=== PATIENT | female | born 1930 | race Caucasian/White ===

== ENCOUNTER 2017-06-11 19:18 | Inpatient (IN) | payer OTHER, MEDICARE ==
[~2017-06-11] VITALS: Ht 167.6 cm; Wt 68.0 kg
[~2017-06-11 19:18] MED LIST: ACIDOPHILUS1 CAP PO; ACIDOPHILUS1 EACH PO; COLACE100 MG PO; COUGH100 MG/5 M; COUMADIN 3 MG TA3 MG PO; DIGOX0.25 MG PO; DIGOXIN250 MCG PO; EMLA TOP; GABAPENTIN100 M2 PO; GABAPENTIN300 M2 PO; LOPRESSOR 12.12.5 MG PO; LOPRESSOR 25MG25 MG PO; METOPROLOL TART25 M1 PO; NEPHRO-VITE TA0.8 MG PO; NEPHROCAPS1 TAB PO; NEURONTIN100 MG PO; NEURONTIN300 MG PO; NORVASC 2.5 MG2.5 MG PO; PROBIOTIC FORMU1 CA1 PO; PROBIOTIC1 EACH PO; RENVELA800 M1 PO; SIMVASTATIN10 M1 PO; SIMVASTATIN20 MG PO; SYMBICORT 80-10.2 GM INH; TYLENOL WITH C1 EACH PO; VOLTAREN100 GM TOP; WARFARIN SODIUM2 M1 PO
--- NOTE | 2017-06-11 19:22 | ED GENERAL ADULT ---
History of Present Illness General Chief Complaint: Altered Mental Status Stated Complaint: BIBA FOR ALTERED MENTAL STATUS Source: patient Exam Limitations: poor historian Vital Signs & Intake/Output Vital Signs & Intake/Output Vital Signs Date Time Temp Pulse Resp B/P B/P Pulse O2 O2 Flow FiO2 Mean Ox Delivery Rate 06/12 2023 95 Nasal 2.0L Cannula 06/11 2006 96 Nasal 2.0L Cannula 06/11 1921 97.5 78 20 148/64 93 Room Air Allergies Coded Allergies: losartan (From COZAAR) (Severe, HYPOTENSION 11/17/16) celecoxib (From CELEBREX) (Mild, RASH 11/17/16) Sulfa (Sulfonamide Antibiotics) (Intermediate, GI, DIARRHEA 11/17/16) doxycycline (Intermediate, GI, DIARRHEA 11/17/16) Reconcile Medications Digoxin 250 MCG TABLET 1 TAB PO SAT HEART HEALTH (Reported) Gabapentin 100 MG CAPSULE 1 CAP PO BID Pain (Reported) Give on: Saturday, Saturday, Saturday and Saturday Gabapentin 300 MG CAPSULE 1 CAP PO SAT PAIN (Reported) Lactobacillus Acidophilus (Acidophilus) 1 EACH CAPSULE 1 CAP PO DAILY VITAMIN SUPPORT (Reported) Lactobacillus Acidophilus (Probiotic) 10 BILLION CELL CAPSULE 1 CAP PO TID VITAMIN SUPPORT (Reported) Metoprolol Tartrate 25 MG TABLET 12.5 MG PO BID HIGH BLOOD PRESSURE (Reported ) Give on non dialysis days: Saturday, Saturday, Saturday and Saturday Nephro-Vitamins (Nephro-Singh Tablet) 0.8 MG TABLET 1 TAB PO DAILY VITAMIN SUPPORT (Reported) Sevelamer Carbonate (Renvela) 800 MG TABLET 2 TAB PO TID ELECTROLYTES ( Reported) Simvastatin (Simvastatin*) 10 MG TABLET 1 TAB PO QPM HIGH CHOLESTROL ( Reported) Warfarin Sodium 2 MG TABLET 1 TAB PO DAILY BLOOD THINNER (Reported) Triage Nurses Notes Reviewed? yes Onset: Abrupt Duration: hour(s): Timing: recent history HPI: 06/11/17 8:40 PM 87-year-old female is brought into the emergency department by her family for altered mental status and leg swelling. According to the patient's daughter she has been more confused today and also has significant bilateral lower extremity leg swelling with redness and pain to the left anterior lower extremity. She denies chest pain, shortness of breath, fever or other complaints. She declined going to dialysis today. She was last dialyzed on Saturday. She did not have a full dialysis on Saturday requiring IV fluids for hypotension. She does not make urine. Past History Travel History Traveled to [place] past 21 day No Medical History Any Pertinent Medical History? see below for history Neurological: CVA, peripheral neuropathy, syncope EENT: NONE Cardiovascular: AFIB, hypertension Respiratory: pulmonary hypertension, PLEURAL EFFUSION RT Gastrointestinal: NONE Hepatic: NONE Renal: chronic kidney disease Musculoskeletal: osteoarthritis, osteoporosis, RA Psychiatric: NONE Endocrine: NONE Blood Disorders: NONE Cancer(s): NONE MILL OPERATOR HEAD/Reproductive: NONE History of MRSA: No History of VRE: No History of CDIFF: No Surgical History Surgical History: cataract removal (B/L), hysterectomy, AV FISTULA 2006 GRAFT AT AV FISTULA 2013 Psychosocial History Who do you live with Daughter Services at Home None What is your primary language Com[place]an Family History Family History, If Any: MOTHER (HTN). FH: breast cancer FH: CAD (coronary artery disease) FH: colon cancer BROTHER FH: Alzheimers disease FH: CAD (coronary artery disease) FATHER, ; Cause: Myocardial infarct. FH: HTN (hypertension) Relation not specified for: FH: myocardial infarction Hx Contributory? No Review of Systems Review of Systems Constitutional: Denies: fever. EENTM: Denies: visual changes. Respiratory: Denies: short of breath. Cardiovascular: Denies: chest pain. GI: Denies: abdominal pain. Genitourinary: Reports: no symptoms. Musculoskeletal: Reports: see HPI. Skin: Reports: see HPI. Neurological/Psychological: Reports: confusion. Hematologic/Endocrine: Reports: no symptoms. Immunologic/Allergic: Reports: no symptoms. Physical Exam Physical Exam General Appearance: alert, awake, anxious, mild distress Head: atraumatic, normal appearance Eyes: Bilateral: normal appearance, PERRL, EOMI. Ears, Nose, Throat: normal ENT inspection Neck: normal inspection Respiratory: no respiratory distress Cardiovascular: regular rate/rhythm Gastrointestinal: soft, non-tender Back: decreased range of motion Extremities: pedal edema Neurologic/Psych: awake, alert (ox 2 with help) Skin: rash Core Measures ACS in differential dx? No CVA/TIA Diagnosis: Yes Sepsis Present: No Sepsis Focused Exam Completed? No Progress Differential Diagnoses I considered the following diagnoses in my evaluation of the patient: [CVA, TIA, sepsis, cellulitis, electrolyte derangement, pneumonia] Plan of Care: Orders Procedure Date/time Status Renal Dialysis Diet 06/12 B Active LACTIC ACID 06/12 2243 Complete ED Holding Orders 06/12 2155 Active Admit to inpatient 06/12 2155 Active Vital Signs 06/12 2155 Active Code Status 06/12 2155 Active Add-on Test (ER Only) 06/11 2134 Active DIGOXIN 06/11 2032 Active BLOOD CULTURE 06/12 1943 Active TROPONIN LEVEL 06/12 1943 Active PROTHROMBIN TIME 06/12 1943 Complete D-DIMER 06/12 1943 Complete COMPREHENSIVE METABOLIC PANEL 06/12 1943 Active CBC WITHOUT DIFFERENTIAL 06/12 1943 Complete EKG 06/11 1921 Active Current Medications Sig/Luis Start time Last Medication Dose Stop Time Status Admin Cefazolin Sodium 1,000 MG ONCE ONE 06/11 2199 UNVr (Kefzol-Ancef Inj) 06/11 2200 Laboratory Tests 06/11/17 2100: PT 69.2 *H, INR 6.23 *H, D-Dimer High Sensitivty < 200 06/11/172032: Anion Gap 9, Estimated GFR 11 L, BUN/Creatinine Ratio 8.8, Glucose 89, Calcium 9.1, Total Bilirubin 1.1, AST 14, ALT 25, Alkaline Phosphatase 82, Troponin I < 0.01, Total Protein 5.3 L, Albumin 2.6 L, Globulin 2.7, Albumin/Globulin Ratio 1.0 L, Digoxin Pending 06/11/171949: Lactic Acid 0.7, CBC w Diff NO MAN DIFF REQ, RBC 3.62 L, MCV 103.3 H, MCH 31.8 H, MCHC 30.8 L, RDW 19.0 H, MPV 7.5, Gran % 93.8 H, Lymphocytes % 3.8 L, Monocytes % 2.1, Eosinophils % 0.1, Basophils % 0.2, Absolute Granulocytes 19.6 H, Absolute Lymphocytes 0.8 L, Absolute Monocytes 0.4, Absolute Eosinophils 0, Absolute Basophils 0 Microbiology 06/11 1949 BLOOD: Blood Culture - RECD 06/12 1947 BLOOD: Blood Culture - RECD CXR Impression: no acute abnormality Initial ED EKG: NSR, nonspecific ST T wave chg Prior EKG: unchanged Departure Departure Disposition: STILL A PATIENT Condition: Stable Clinical Impression Primary Impression: Altered mental status Secondary Impressions: Cellulitis Referrals: Arevalo Ino ZHAO (PCP/Family) Departure Forms: Customer Survey General Discharge Information Comments PATIENT: VANESSA CHONG PRESENT AGE: 87 PATIENT ACCOUNT NO: [id number] : [birth year] LOCATION: [facility] ORDERING PHYSICIAN: Cristian Canchola DO SERVICE DATE: 06/11/17 EXAM TYPE: CAT - CT HEAD WO IV CONTRAST EXAMINATION: CT HEAD WITHOUT CONTRAST CLINICAL INFORMATION: Altered mental status. On Coumadin. COMPARISON: CT head 08/05/2012 TECHNIQUE: Contiguous axial imaging was performed from the skull base to vertex without intravenous administration of contrast. DLP: 359.06 mGy-cm FINDINGS: There is a geographic area of low attenuation involving the left periventricular white matter in the left parietal lobe extending into the cortex. This is likely from an old infarct but is new since the CAT scan of 08/05/2012. There is no evidence of acute intracranial hemorrhage or acute territorial infarction. No abnormal mass effect or midline shift is seen. Negrete to white matter differentiation is well preserved. No extra-axial fluid collections are identified. There is atrophy with prominence of the ventricles and the sulci and hypodensity of the periventricular white matter due to chronic small vessel ischemic disease. There is vascular calcifications of the internal carotid arteries bilaterally. The osseous structures and soft tissues are normal. The mastoid air cells and visualized portions of the paranasal sinuses are well aerated. IMPRESSION: 1. No intracranial hemorrhage. 2. Geographic area of low attenuation involving the left periventricular white matter in the left parietal lobe likely old infarct but is new since CAT scan of 08/05/2012. DICTATED BY: Art Hodges MD DATE/TIME DICTATED:06/11/172020 BAKER HELPER:CRISTIAN DATE/TIME TRANSCRIBED:06/11/172020 CONFIDENTIAL, DO NOT COPY WITHOUT APPROPRIATE AUTHORIZATION. <Electronically signed in Other Vendor System> SIGNED BY: Art Hodges MD 06/11/172028 Admission Note Spoke With: Sundeep Lowery MD Documentation of Exam: Documentation of any treatments & extenuating circumstances including Concerns Regarding Discharge (functional status, medication knowledge or non-compliance, living conditions, etc.) that warrant an admission rather than observation: [The patient needs admission for IV antibiotics, renal consultation, follow the digoxin level, follow the repeat INR level, consider PT consultation] Critical Care Note Critical Care Note Critical Care Time: non-applicable
--- NOTE | 2017-06-11 20:24 | RADIOLOGY REPORT ---
EXAMINATION: XR PORTABLE CHEST CLINICAL INFORMATION: Altered mental status. COMPARISON: Chest x-ray 05/11/2015 TECHNIQUE: Portable frontal view of the chest was obtained. 7:52 PM FINDINGS: The chin overlies the lower lung apex. There is no acute change. No infiltrate. No pulmonary vascular congestion. Chronic blunting of the right costophrenic angle unchanged since prior chest x-ray 05/11/2015. Vascular stent in the soft tissues of the left upper arm partially imaged. IMPRESSION: No acute abnormality.
--- NOTE | 2017-06-11 20:29 | CT SCAN REPORT ---
EXAMINATION: CT HEAD WITHOUT CONTRAST CLINICAL INFORMATION: Altered mental status. On Coumadin. COMPARISON: CT head 08/05/2012 TECHNIQUE: Contiguous axial imaging was performed from the skull base to vertex without intravenous administration of contrast. DLP: 359.06 mGy-cm FINDINGS: There is a geographic area of low attenuation involving the left periventricular white matter in the left parietal lobe extending into the cortex. This is likely from an old infarct but is new since the CAT scan of 08/05/2012. There is no evidence of acute intracranial hemorrhage or acute territorial infarction. No abnormal mass effect or midline shift is seen. Negrete to white matter differentiation is well preserved. No extra-axial fluid collections are identified. There is atrophy with prominence of the ventricles and the sulci and hypodensity of the periventricular white matter due to chronic small vessel ischemic disease. There is vascular calcifications of the internal carotid arteries bilaterally. The osseous structures and soft tissues are normal. The mastoid air cells and visualized portions of the paranasal sinuses are well aerated. IMPRESSION: 1. No intracranial hemorrhage. 2. Geographic area of low attenuation involving the left periventricular white matter in the left parietal lobe likely old infarct but is new since CAT scan of 08/05/2012.
[2017-06-11 20:44] LABS: ABSOLUTE BASOPHIL COUNT 0 /CUMM (0.0-0.2); ABSOLUTE EOSINOPHIL COUNT 0 /CUMM (0.0-0.7); ABSOLUTE GRANULOCYTE CT 19.6 /CUMM (1.4-6.5); ABSOLUTE LYMPH COUNT 0.8 /CUMM (1.2-3.4); ABSOLUTE MONOCYTE COUNT 0.4 /CUMM (0.10-0.60); BASOPHIL % 0.2 % (0.0-2.0); EOSINOPHIL % 0.1 % (0-5); HEMATOCRIT 37.3 % (37-47); MEAN CORPUSCULAR HGB 31.8 PG (27.0-31.0); MEAN CORPUSCULAR HGB CONC 30.8 G/DL (33.0-37.0); MEAN CORPUSCULAR VOLUME 103.3 FL (81.0-99.0); MEAN PLATELET VOLUME 7.5 FL (7.4-10.4); PLATELET COUNT 226 /CUMM (130-400); RED BLOOD CELL CT 3.62 /CUMM (4.20-5.40); WHITE BLOOD CELL COUNT 20.9 /CUMM (4.8-10.8)
[2017-06-11 21:11] LABS: GRANULOCYTE % 93.8 % (42.2-75.2)
[2017-06-11 21:29] LABS: PT 69.2 SEC (9.4-12.5)
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
[2017-06-11] MEDS ORDERED: METOPROLOL TART25 M1 PO (23:34)
--- NOTE | 2017-06-12 01:42 | Admission Certification ---
Admission Certification Certification Statement - As attending physician, I certify that at the time of - admission, based on clinical presentation, severity of - symptoms, need for further diagnostic testing and - therapeutic interventions, and risk of adverse outcomes - without in-hospital treatment, in my clinical assessment, - this patient requires an acute hospital stay for a minimum - of two nights or longer. I have also considered psychsocial - factors such as support system, advanced age, financial - issues, cognitive issues, and failed out-patient treatments, - past re-admission history, safety of patient, and lack of - compliance as applicable. Specific rationale supporting this admission is: Left lower extremity cellulitis
[2017-06-12 06:02] VITALS: BP 150/67
[2017-06-12 06:26] LABS: ABSOLUTE BASOPHIL COUNT 0.1 /CUMM (0.0-0.2); ABSOLUTE EOSINOPHIL COUNT 0.1 /CUMM (0.0-0.7); ABSOLUTE GRANULOCYTE CT 18.6 /CUMM (1.4-6.5); ABSOLUTE LYMPH COUNT 0.9 /CUMM (1.2-3.4); ABSOLUTE MONOCYTE COUNT 0.5 /CUMM (0.10-0.60); BASOPHIL % 0.3 % (0.0-2.0); EOSINOPHIL % 0.3 % (0-5); GRANULOCYTE % 92.4 % (42.2-75.2); HEMATOCRIT 35.9 % (37-47); MEAN CORPUSCULAR HGB 31.7 PG (27.0-31.0); MEAN CORPUSCULAR HGB CONC 30.7 G/DL (33.0-37.0); MEAN CORPUSCULAR VOLUME 103.1 FL (81.0-99.0); MEAN PLATELET VOLUME 7.1 FL (7.4-10.4); PLATELET COUNT 227 /CUMM (130-400); RED BLOOD CELL CT 3.48 /CUMM (4.20-5.40); WHITE BLOOD CELL COUNT 20.1 /CUMM (4.8-10.8)
--- NOTE | 2017-06-12 07:13 | PN- Housestaff ---
Neal ZHAO,Viviana 06/12/17 0712: Subjective Follow-up For: Left leg cellulitis, end-stage renal disease on dialysis, altered mental status Complaints: no complaints Subjective: Patient seen and examined at bedside. Her daughter was at the bedside. No overnight events. She offers no complaints. She is alert, oriented 3. She denies chest pain, shortness of breath, pain in her legs. She expressed her wish to not to continue dialysis. Review of Systems Constitutional: Reports: no symptoms. Cardiovascular: Reports: no symptoms. Respiratory: Reports: no symptoms. Gastrointestinal: Reports: no symptoms. Genitourinary: Reports: no symptoms. Objective Last 24 Hrs of Vital Signs/I&O Vital Signs Date Time Temp Pulse Resp B/P B/P Pulse O2 O2 Flow FiO2 Mean Ox Delivery Rate 06/12 1026 97.6 81 20 149/62 100 Nasal 2.0L Cannula 06/12 0743 97.5 79 20 166/65 99 Room Air 06/12 0602 95.0 74 20 150/67 100 Nasal 2.0L Cannula 06/12 0555 95.0 74 20 150/67 100 Nasal 2.0L Cannula 06/12 0001 97.4 78 20 144/66 98 Nasal 2.0L Cannula 06/11 2201 97.6 77 20 159/67 99 Nasal 2.0L Cannula 06/12 2023 95 Nasal 2.0L Cannula 06/11 2007 96 Nasal 2.0L Cannula 06/11 1921 97.5 78 20 148/64 93 Room Air Intake & Output 06/12 1600 06/12 0800 06/12 0000 Intake Total 100 0 Output Total Balance 100 0 Intake, Oral 100 0 Patient 150 lb 150 lb Weight Weight Reported by Patient Measurement Method Physical Exam General Appearance: Alert, Oriented X3 Cardiovascular: Regular Rate, Normal S1, Normal S2, No Murmurs Lungs: Clear to Auscultation Abdomen: Normal Bowel Sounds, Soft, No Tenderness Neurological: Normal Speech, Sensation Intact Extremities: bilateral leg swelling. Left leg in wraps. No tenderness/warmth. Current Medications: Current Medications Sig/Luis Start time Last Medication Dose Route Stop Time Status Admin Atorvastatin Calcium 10 MG 1700 06/12 1700 AC PO Cefazolin Sodium 1,000 MG BID 06/12 1000 AC 06/12 IV 0840 Cefazolin Sodium 1,000 MG ONCE ONE 06/110 DC 06/11 IV 06/11 Cefazolin Sodium 0 .STK-MED ONE 06/11 220 DC .ROUTE Cholecalciferol 2,000 IU DAILY 06/12 1000 AC PO Digoxin 0.25 MG TuThSa@1700 06/13 1700 DC PO Digoxin 0.25 MG TuThSa@1700 06/12 0730 AC PO Epoetin Sachin 10,000 UNIT TuThSa PRN 06/12 1045 AC IV Gabapentin 300 MG TU TH SAT 06/13 1000 CAN PO Gabapentin 100 MG BID 06/12 1000 CAN PO Heparin Sodium 5,000 UNIT Q8 06/12 0600 DC 06/12 (Porcine) SC 0600 Heparin Sodium 0 .STK-MED ONE 06/12 0559 DC (Porcine) .ROUTE Lactobacillus 1 CAP DAILY 06/12 1000 AC Acidophilus PO Metoprolol Tartrate 12.5 MG BID 06/12 1000 CAN PO Multivitamins 1 TAB DAILY 06/12 1000 AC PO Paricalcitol 10 MCG TuThSa PRN 06/12 1045 AC IV Sevelamer Carbonate 1,600 MG WM 06/12 0800 AC PO Sodium Polystyrene 0 .STK-MED ONE 06/12 0559 DC Sulfonate .ROUTE Sodium Polystyrene 60 ML ONCE ONE 06/12 0345 DC 06/12 Sulfonate NJ 06/12 0346 0600 Last 24 Hrs of Lab/Pillo Results Last 24 Hrs of Labs/Mics: Laboratory Tests 06/12/17 0607: Anion Gap 8, Estimated GFR 9 L, BUN/Creatinine Ratio 8.1, CBC w Diff MAN DIFF ORDERED, RBC 3.48 L, MCV 103.1 H, MCH 31.7 H, MCHC 30.7 L, RDW 18.0 H, MPV 7.1 L, Gran % 92.4 H, Lymphocytes % 4.6 L, Monocytes % 2.4, Eosinophils % 0.3 , Basophils % 0.3, Absolute Granulocytes 18.6 H, Segmented Neutrophils 90 H, Absolute Lymphocytes 0.9 L, Lymphocytes 5 L, Monocytes 4, Absolute Monocytes 0.5, Absolute Eosinophils 0.1, Basophils 1, Absolute Basophils 0.1, Platelet Estimate ADEQUATE, Polychromasia 1+, Hypochromic-Microcytic 1+, Poikilocytosis 1 +, Anisocytosis 1+, Macrocytic Cells 1+, Ovalocytes 1+, Fld Total RBCs Counted 100 03/13/18 2100: PT 69.2 *H, INR 6.23 *H, D-Dimer High Sensitivty < 200 06/11/172032: Anion Gap 9, Estimated GFR 11 L, BUN/Creatinine Ratio 8.8, Glucose 89, Calcium 9.1, Total Bilirubin 1.1, AST 14, ALT 25, Alkaline Phosphatase 82, Troponin I < 0.01, Total Protein 5.3 L, Albumin 2.6 L, Globulin 2.7, Albumin/Globulin Ratio 1.0 L, Digoxin 1.2 06/11/171949: Lactic Acid 0.7, CBC w Diff NO MAN DIFF REQ, RBC 3.62 L, MCV 103.3 H, MCH 31.8 H, MCHC 30.8 L, RDW 19.0 H, MPV 7.5, Gran % 93.8 H, Lymphocytes % 3.8 L, Monocytes % 2.1, Eosinophils % 0.1, Basophils % 0.2, Absolute Granulocytes 19.6 H, Absolute Lymphocytes 0.8 L, Absolute Monocytes 0.4, Absolute Eosinophils 0, Absolute Basophils 0 Microbiology 06/11 1949 BLOOD: Blood Culture - RECD 06/12 1947 BLOOD: Blood Culture - RECD Assessment/Plan Assessment: 87 YO F with PMH of ESRD on dialysis, A. fib on Coumadin, syncope, HTN, CVA in 2012, pulmonary hypertension on 2 L on oxygen, peripheral neuropathy, osteoporosis, osteoarthritis, RA, hysterectomy, AV fistula in 2005 and graft at AV fistula 2013 and cataract removal bilaterally brought to ED by family for evaluation of altered mental status and progressive worsening bilateral leg swelling with left leg redness for one week. 1. Left leg cellulitis: -Patient has been admitted for left leg cellulitis, patient is on IV cefazolin for the same. Patient WBC count is 20.1 and afebrile since admission. We will continue monitoring her vitals and follow-up with her CBC. -Bilateral leg elevation. Follow up with blood culture. -Ultrasound Doppler ruled out DVT. 2. Supratherapeutic INR: -We will monitor her INR. -Hold her Coumadin. 3. Metabolic encephalopathy: -Patient recent change in mental status can be secondary due to her infection/ medication. -We will continue monitoring her mental status and continue antibiotics to treat the cellulitis. -We'll hold her gabapentin secondary due to confusion. 4. History of ESRD on dialysis: -Patient will follow-up with Sahhzad Aquino MD and discuss about his dialysis. Monitor BP for creatinine BUN and potassium. -Continue nephro vitamins, sevelamer carbonate. -Monitor input and output -Daily weight 5. History of hypertension: -Continue home medication. -Metoprolol is on hold due to hypotension during dialysis. 6. History of pulmonary hypertension: -We will continue 2 L supplemental oxygen since her baseline. 7. History of A. fib: -We will hold her Coumadin -We will continue digoxin and her digoxin level is 1.2.. 8. History of peripheral neuropathy: -Gabapentin is on hold due to weakness. 9. History of hyperlipidemia: -Continue atorvastatin DVT prophylaxis: Mechanical only as patient is already having supratherapeutic INR. CODE STATUS: Full code. Problem List: 1. AFIB ON COUMADIN 2. End stage renal failure on dialysis 3. Cellulitis 4. Altered mental status Pain Ratin Pain Location: none Pain Goal: Remain pain free Pain Plan: tylenol Tomorrow's Labs & Rationales: cbc,bep Ritika Silver 06/12/17 1220: Attending MD Review Statement Attending Statement Attending MD Statement: examined this patient, discuss w/resident/PA/SECURITY GUARD SUPERVISOR, agreed w/resident/PA/SECURITY GUARD SUPERVISOR, discussed with family, reviewed EMR data (avail), discussed with nursing, discussed with case mgmt, reviewed images, amended to note Attending Assessment/Plan: Patient seen/examined bedside. Patient started on iv antibiotics and has missed her dialysis. Found to have her hyperkalemia. Nephrology consulted. Follow nephrology for further goals of care. Daughter bedside.
--- NOTE | 2017-06-12 10:16 | ULTRASOUND REPORT ---
EXAMINATION: US TRIPLEX LOWER EXTREMITY, LEFT CLINICAL INFORMATION: Swelling, redness. COMPARISON: Left lower extremity ultrasound 10/31/2016 TECHNIQUE: Color-flow triplex imaging with spectral analysis and compression Doppler were performed on the lower extremity. FINDINGS: Respiratory variation, normal compression and augmented flow are noted throughout the lower extremity. The visualized common femoral vein, superficial femoral vein, profunda femoral vein, popliteal vein and midcalf peroneal and posterior tibial venous segments show no evidence of deep venous thrombosis. There is no Manzano's cyst. Pitting subcutaneous edema level of the left knee. IMPRESSION: Normal triplex scan without evidence of deep venous thrombosis involving the lower extremity.
--- NOTE | 2017-06-12 12:04 | Cons- Nephrology ---
See Addendum General Information and HPI Consulting Request Date of Consult: 06/12/17 Requested By: Ritika Silver MD Reason for Consult: ESRD Source of Information: patient, family, old records Exam Limitations: clinical condition History of Present Illness: The patient is an 87-year-old woman with a past medical history most significant for end-stage renal disease on hemodialysis for the last 11 years, A. fib on Coumadin, CVA, pulmonary hypertension on home oxygen who presents with altered mental status and erythema of her left lower extremity. Note that the patient has chronic swelling of her lower extremities, however, they've been worse over the last week. Dry weight was decreased on June 01 to 58 kg from 60 kg previously. There is been associated erythema for the last 2-3 days. This has been associated with altered mental status for the last 2-3 days. Because of this note to him yesterday, she missed her dialysis treatment. Should note that the patient has been expressing wishes to stop dialysis. On presentation, blood pressure 148/64afebrile. Is notable for white count 20.9 , potassium 6.0, INR 6.2. Chest x-ray without any acute abnormality with no pulmonary vascular congestion. Head CT without any intracranial hemorrhage but did note a likely old infarct but new since 2012 CAT scan. Lower extremity Doppler negative. She was given Kayexalate for the hyperkalemia. She was started on cefazolin for suspected cellulitis. Speaking with the patient and her daughter, the patient herself has expressed a desire to stop dialysis. This reportedly was brought up at the dialysis unit as well. The daughter is that she is the power of corporate associate attorney is okay with whatever decision her mother and the physician's make. Should be noted that she is currently full code. Allergies/Medications Allergies: Coded Allergies: losartan (From COZAAR) (Severe, HYPOTENSION 11/17/16) celecoxib (From CELEBREX) (Mild, RASH 11/17/16) Sulfa (Sulfonamide Antibiotics) (Intermediate, GI, DIARRHEA 11/17/16) doxycycline (Intermediate, GI, DIARRHEA 11/17/16) Home Med List: Digoxin 250 MCG TABLET 1 TAB PO [facility] (Reported) Lactobacillus Acidophilus (Acidophilus) 1 EACH CAPSULE 1 CAP PO DAILY VITAMIN SUPPORT (Reported) Lactobacillus Acidophilus (Probiotic) 10 BILLION CELL CAPSULE 1 CAP PO TID VITAMIN SUPPORT (Reported) Metoprolol Tartrate 25 MG TABLET 12.5 MG PO BID HIGH BLOOD PRESSURE (Reported ) Give on non dialysis days: Saturday, Saturday, Saturday and Saturday Nephro-Vitamins (Nephro-Singh Tablet) 0.8 MG TABLET 1 TAB PO DAILY VITAMIN SUPPORT (Reported) Sevelamer Carbonate (Renvela) 800 MG TABLET 2 TAB PO TID ELECTROLYTES ( Reported) Simvastatin (Simvastatin*) 10 MG TABLET 1 TAB PO QPM HIGH CHOLESTROL ( Reported) Warfarin Sodium 2 MG TABLET 1 TAB PO DAILY BLOOD THINNER (Reported) Current Medications: Current Medications Sig/Luis Start time Last Medication Dose Route Stop Time Status Admin Atorvastatin Calcium 10 MG 1700 06/12 1700 AC PO Cefazolin Sodium 1,000 MG BID 06/12 1000 AC 06/12 IV 0840 Cefazolin Sodium 1,000 MG ONCE ONE 06/11 2200 DC 06/11 IV 06/11 2201 2201 Cefazolin Sodium 0 .STK-MED ONE 06/11 2200 DC .ROUTE Cholecalciferol 2,000 IU DAILY 06/12 1000 AC PO Digoxin 0.25 MG TuThSa@1700 06/13 1700 DC PO Digoxin 0.25 MG TuThSa@1700 06/12 0730 AC PO Epoetin Sachin 10,000 UNIT TuThSa PRN 06/12 1045 AC IV Gabapentin 300 MG TUES THURS SAT 06/13 1000 CAN PO Gabapentin 100 MG BID 06/12 1000 CAN PO Heparin Sodium 5,000 UNIT Q8 06/12 0600 DC 06/12 (Porcine) SC 0600 Heparin Sodium 0 .STK-MED ONE 06/12 0559 DC (Porcine) .ROUTE Lactobacillus 1 CAP DAILY 06/12 1000 AC Acidophilus PO Metoprolol Tartrate 12.5 MG BID 06/12 1000 CAN PO Multivitamins 1 TAB DAILY 06/12 1000 AC PO Paricalcitol 10 MCG TuThSa PRN 06/12 1045 AC IV Sevelamer Carbonate 1,600 MG WM 06/12 0800 AC PO Sodium Polystyrene 0 .STK-MED ONE 06/12 0559 DC Sulfonate .ROUTE Sodium Polystyrene 60 ML ONCE ONE 06/12 0345 DC 06/12 Sulfonate FL 06/12 0346 0600 Review of Systems Review of Systems: Complete 14 point ROS neg except as per HPI. 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 FH: breast cancer FH: CAD (coronary artery disease) FH: colon cancer BROTHER FH: Alzheimers disease FH: CAD (coronary artery disease) FATHER, ; Cause: Myocardial infarct. FH: HTN (hypertension) Relation not specified for: FH: myocardial infarction Psychosocial History Where Do You Live? Home Who Do You Live With? child, Daughter Services at Home: None Primary Language: Slovak Smoking Status: Never Smoked Living Will? no Power of Road Roller Operator/HCP? yes Name of POA/HCP: Irvin He Functional Ability ADLs Independent: dressing, eating, toileting, bathing. Ambulation: walker (Rolling walker) IADLs Independent: finances, food prep, telephone, medication admin. Needs Assist: shopping, housework, transportation. Exam & Diagnostic Data Vital Signs and I&O Vital Signs Date Time Temp Pulse Resp B/P B/P Pulse O2 O2 Flow FiO2 Mean Ox Delivery Rate 06/12 1026 97.6 81 20 149/62 100 Nasal 2.0L Cannula 06/12 0743 97.5 79 20 166/65 99 Room Air 06/12 0602 95.0 74 20 150/67 100 Nasal 2.0L Cannula 06/12 0555 95.0 74 20 150/67 100 Nasal 2.0L Cannula 06/12 0001 97.4 78 20 144/66 98 Nasal 2.0L Cannula 06/11 2201 97.6 77 20 159/67 99 Nasal 2.0L Cannula 06/12 2023 95 Nasal 2.0L Cannula 06/11 2006 96 Nasal 2.0L Cannula 06/11 1921 97.5 78 20 148/64 93 Room Air Intake & Output 06/12 1600 06/12 0400 06/11 1600 06/11 0400 06/10 1600 06/10 040 Intake Total 100 0 Output Total Balance 100 0 Intake, Oral 100 0 Patient 150 lb Weight Weight Reported by Patient Measurement Method Physical Exam: Gen - frail appearing, weak Head - atraumatic, some temporal wasting Eyes - anicteric sclera, EOMI Neck - supple, no LAD CV - RRR, no m/r/g Chest - clear anteriorly, no w/r/r Abd - soft, NTND Upper ext - warm, no edema, CATY AVG +bruit Lower ext - LLE wrapped, warm, trace-1+ edema Skin - LLE wrapped - limited evaluation but no visible rash or jaundice Neuro - weak, will respond to voice - limited exam Results Pertinent Lab Results: Laboratory Tests 06/12 06/11 06/11 0607 2100 2033 Chemistry Sodium (137 - 145 mmol/L) 136 L 134 L Potassium (3.5 - 5.1 mmol/L) 6.0 *H 5.7 H Chloride (98 - 107 mmol/L) 102 101 Carbon Dioxide (22 - 30 mmol/L) 26 24 Anion Gap (5 - 16) 8 9 BUN (7 - 17 mg/dL) 39 H 35 H Creatinine (0.5 - 1.0 mg/dL) 4.8 H 4.0 H Estimated GFR (>60 ml/min) 9 L 11 L BUN/Creatinine Ratio (7 - 25 %) 8.1 8.8 Glucose (65 - 99 mg/dL) 89 Calcium (8.4 - 10.2 mg/dL) 9.1 Total Bilirubin (0.2 - 1.3 mg/dL) 1.1 AST (14 - 36 U/L) 14 ALT (9 - 52 U/L) 25 Alkaline Phosphatase (<127 U/L) 82 Troponin I (< 0.11 ng/ml) < 0.01 Total Protein (6.3 - 8.2 g/dL) 5.3 L Albumin (3.5 - 5.0 g/dL) 2.6 L Globulin (1.9 - 4.2 gm/dL) 2.7 Albumin/Globulin Ratio (1.1 - 2.2 %) 1.0 L Coagulation PT (9.4 - 12.5 SEC) 69.2 *H INR (0.90 - 1.19) 6.23 *H D-Dimer High Sensitivty (0 - 243 ng/ml) < 200 Hematology CBC w Diff MAN DIFF ORDERED WBC (4.8 - 10.8 /CUMM) 20.1 H RBC (4.20 - 5.40 /CUMM) 3.48 L Hgb (12.0 - 16.0 G/DL) 11.0 L Hct (37 - 47 %) 35.9 L MCV (81.0 - 99.0 FL) 103.1 H MCH (27.0 - 31.0 PG) 31.7 H MCHC (33.0 - 37.0 G/DL) 30.7 L RDW (11.5 - 14.5 %) 18.0 H Plt Count (130 - 400 /CUMM) 227 MPV (7.4 - 10.4 FL) 7.1 L Gran % (42.2 - 75.2 %) 92.4 H Lymphocytes % (20.5 - 51.1 %) 4.6 L Monocytes % (1.7 - 9.3 %) 2.4 Eosinophils % (0 - 5 %) 0.3 Basophils % (0.0 - 2.0 %) 0.3 Absolute Granulocytes (1.4 - 6.5 /CUMM) 18.6 H Segmented Neutrophils (42.2 - 75.2 %) 90 H Absolute Lymphocytes (1.2 - 3.4 /CUMM) 0.9 L Lymphocytes (20.5 - 51.1 %) 5 L Monocytes (1.7 - 9.3 %) 4 Absolute Monocytes (0.10 - 0.60 /CUMM) 0.5 Absolute Eosinophils (0.0 - 0.7 /CUMM) 0.1 Basophils (0.0 - 2.0 %) 1 Absolute Basophils (0.0 - 0.2 /CUMM) 0.1 Platelet Estimate (ADEQUATE) ADEQUATE Polychromasia 1+ Hypochromic-Microcytic 1+ Poikilocytosis 1+ Anisocytosis 1+ Macrocytic Cells 1+ Ovalocytes 1+ Other Body Source Fld Total RBCs Counted (%) 100 Toxicology Digoxin (0.8 - 2.0 ng/mL) 1.2 03/13 1950 Chemistry Lactic Acid (0.7 - 2.1 mmol/L) 0.7 Hematology CBC w Diff NO MAN DIFF REQ WBC (4.8 - 10.8 /CUMM) 20.9 H RBC (4.20 - 5.40 /CUMM) 3.62 L Hgb (12.0 - 16.0 G/DL) 11.5 L Hct (37 - 47 %) 37.3 MCV (81.0 - 99.0 FL) 103.3 H MCH (27.0 - 31.0 PG) 31.8 H MCHC (33.0 - 37.0 G/DL) 30.8 L RDW (11.5 - 14.5 %) 19.0 H Plt Count (130 - 400 /CUMM) 226 MPV (7.4 - 10.4 FL) 7.5 Gran % (42.2 - 75.2 %) 93.8 H Lymphocytes % (20.5 - 51.1 %) 3.8 L Monocytes % (1.7 - 9.3 %) 2.1 Eosinophils % (0 - 5 %) 0.1 Basophils % (0.0 - 2.0 %) 0.2 Absolute Granulocytes (1.4 - 6.5 /CUMM) 19.6 H Absolute Lymphocytes (1.2 - 3.4 /CUMM) 0.8 L Absolute Monocytes (0.10 - 0.60 /CUMM) 0.4 Absolute Eosinophils (0.0 - 0.7 /CUMM) 0 Absolute Basophils (0.0 - 0.2 /CUMM) 0 Imaging/Other Studies: Chest x-ray, Lower ext US, CT Head reviewedd Assessment/Plan Assessment/Recommendations Assessment: ESRD - Although was noted to be altered, expressing clear understanding of the desire to stop dialysis and that it would lead to imminent . We discussed doing 1 HD session today so that her family could come and arrangements could be made for hospice etc. I did mention to them that we would need to change her code status to "DNR/DNI" to which her daughter demonstrated clear agreement. Cellulitis - Started on cefazolin. Anemia - On Epogen - can cont for now. Recommendations: -HD today - 1K bath (f/u repeat K and switch to 2K if K<5.5) - approx 1L UF as tolerated -Today will be the last dialysis - will need planning for hospice -Would change code status to DNR -Epogen -Abx as dictated by [facility] Please call [phone] with ?'s
[2017-06-12 12:40] LABS: PT 85.2 SEC (9.4-12.5)
--- NOTE | 2017-06-12 16:13 | Event Note ---
Event Note Event Note: Around 1 pm today, while patient was in hemodialysis, I discussed patient's code status with patient's daughter and Healthcare POA Irvin He in the presence of her brother and the corporate communications intern. Patient's daughter Irvin He again restated patient's decision to stop hemodialysis. She was fully aware that being stopping hemodialysis is fatal and stated that this was her mother's constant wish over the past few months and they wish to honor that wish. She was informed about hospice services available in the hospital and stated that she would wish to pursue inpatient hospice or other hospice facilities that were available. She was eduated about the goals of hospice care and agreed that she did not want any life prolonging therapy and only wanted to keep the patient, her mother comfortable. Attending was notified about this development. However, around 3 PM after patient had finished with hemodialysis she was approached by medical case worker about arranging hospice care. The patient now stated that she does not want hospice care and that she wants to continue treatments and to continue hemodialysis. I spoke to patient afterwards and she stated the same to me. Plan -Will continue with current therapy at this time -Code status remains DNR/DNI -Will update nephrology about patient's decision
[2017-06-12 17:59] VITALS: BP 120/48
--- NOTE | 2017-06-12 22:06 | Event Note ---
Event Note Event Note: I was paged that patient is growing gram-positive cocci in one of our blood samples. Condition was discussed with my resident and attending. Patient was given 1 dose of vancomycin as recommended by the attending. We will follow the final blood cultures.
[2017-06-13 06:28] VITALS: BP 130/52
--- NOTE | 2017-06-13 07:53 | PN- Housestaff ---
Neal ZHAO,Viviana 06/13/17 0753: Subjective Follow-up For: End-stage renal disease, left leg cellulitis Complaints: no complaints Subjective: Patient seen and examined at bedside. Daughter was at the bedside. No overnight events. No complaints. Patient appears very lethargic and she said she is "doing okay". Daughter who was at the bedside, who is her POA expressed her wish to transition the care from DNR/DNI to hospice. We will get hospice team on board. Patient and her family denied all blood work. Review of Systems Constitutional: Reports: no symptoms. Comments: Review of system unobtainable since the patient was lethargic. Objective Last 24 Hrs of Vital Signs/I&O Vital Signs Date Time Temp Pulse Resp B/P B/P Pulse O2 O2 Flow FiO2 Mean Ox Delivery Rate 06/13 0628 97.3 75 18 130/52 94 Nasal Cannula 06/12 1800 Nasal 2.0L Cannula 06/12 1759 97.5 88 18 120/48 97 Nasal 2.0L Cannula 06/12 1559 97.2 88 18 122/58 96 Room Air Intake & Output 06/13 1600 06/13 0800 06/13 0000 Intake Total 360 360 Output Total Balance 360 360 Intake, Oral 360 360 Patient 150 lb Weight Physical Exam General Appearance: Alert, No Acute Distress Cardiovascular: Normal S1, Normal S2, No Murmurs Lungs: Clear to Auscultation Abdomen: Soft Extremities: left leg swelling. Current Medications: Current Medications Sig/Luis Start time Last Medication Dose Route Stop Time Status Admin Acetaminophen 325 MG ONCE ONE 06/13 0530 DC 06/13 PO 06/13 0531 0525 Acetaminophen 325 MG ONCE ONE 06/12 1930 DC 06/12 PO 06/12 1931 1942 Atorvastatin Calcium 10 MG 1700 06/12 1700 DCD PO Cefazolin Sodium 1,000 MG BID 06/12 1000 DCD 06/12 IV 2155 Cholecalciferol 2,000 IU DAILY 06/12 1000 DCD PO Digoxin 0.25 MG TuThSa@1700 06/12 0730 DCD PO Epoetin Sachin 10,000 UNIT TuThSa PRN 06/12 1045 DCD IV Lactobacillus 1 CAP DAILY 06/12 1000 DCD Acidophilus PO Multivitamins 1 TAB DAILY 06/12 1000 DCD PO Paricalcitol 10 MCG TuThSa PRN 06/12 1045 DCD IV Sevelamer Carbonate 1,600 MG WM 06/12 0800 DCD PO Vancomycin HCl 1,000 MG ONCE ONE 06/12 2215 DC 06/13 Dextrose/Water 250 ML IV 06/12 2314 0023 Last 24 Hrs of Lab/Pillo Results Last 24 Hrs of Labs/Mics: Laboratory Tests 06/13/17 0600: CBC w Diff Cancelled, WBC Cancelled, RBC Cancelled, Hgb Cancelled, Hct Cancelled , MCV Cancelled, MCH Cancelled, MCHC Cancelled, RDW Cancelled, Plt Count Cancelled, MPV Cancelled Assessment/Plan Assessment: 87 YO F with PMH of ESRD on dialysis, A. fib on Coumadin, syncope, HTN, CVA in 2012, pulmonary hypertension on 2 L on oxygen, peripheral neuropathy, osteoporosis, osteoarthritis, RA, hysterectomy, AV fistula in 2005 and graft at AV fistula 2013 and cataract removal bilaterally brought to ED by family for evaluation of altered mental status and progressive worsening bilateral leg swelling with left leg redness for one week. 1. Left leg cellulitis/supratherapeutic INR/metabolic encephalopathy/end-stage renal disease -Patient has been admitted for left leg cellulitis, patient is on IV cefazolin for the same. Patient WBC count is 20.1 and afebrile since admission. Currently transitioning her care to hospice her morning labs were not done. Moreover the patient and her family doesn't want further blood work. Patient got her hemodialysis yesterday but it was stopped in view of hypotension. Dr. Del Valle is on board. Patient had expressed her wish twice both in the ED and after admission in general medical floor that she doesn't want any further hemodialysis in future. We will get hospice team on board and evaluate her today. We will keep the patient comfortable. DVT prophylaxis: Mechanical only as patient is already having supratherapeutic INR. CODE STATUS: DNR/DNI Daughter who was at the bedside, who is her POA expressed her wish to transition the care from DNR/DNI to hospice. We will get hospice team on board. Patient and her family denied all blood work. Problem List: 1. End stage renal failure on dialysis 2. AFIB ON COUMADIN 3. Cellulitis 4. Altered mental status 5. Pulmonary hypertension Pain Ratin Pain Location: none Pain Goal: Remain pain free Pain Plan: tylenol Tomorrow's Labs & Rationales: none Norman Cole MD 06/13/17 2017: Attending MD Review Statement Attending Statement Attending MD Statement: examined this patient, discuss w/resident/PA/SCRAP DEALER, agreed w/resident/PA/SCRAP DEALER, discussed with family, reviewed EMR data (avail), discussed with nursing, discussed with case mgmt, amended to note Attending Assessment/Plan: The patient was seen and discussed with house staff, family, case management and Hospice nurse. Family agrees to transfer to inpatient Hospice service today. Hospice admit orders are written.
--- NOTE | 2017-06-13 11:54 | PN- Nephrology ---
Assessment/Plan Nephrology Assessment: ESRD - Patient and family opting to stop dialysis and transition to hospice/ comfort care measures. She has been on HD for 11+ years up to this point and has been incredibly compliant. Cellulitis - Started on cefazolin with coag neg terrance blood culture. Anemia - On Epogen - can cont if within GOC. Suggestion: -No further plans for dialysis -Further care including abx to be determined if in line with GOC Will see PRN - please let me know if any change in clinical status Please call [phone] with ?'s Subjective Subjective: HD yesterday - treatment cut short by hypotension Pt seen with daughter and son at bedside Confirm that she is coming off dialysis program with plans to transition to hospice Blood cx with dameong sandrine carlos Unable to get IV access or blood draws - daughter and son asked for no more blood draws/IV's Objective Vital Signs and I&Os Vital Signs Date Time Temp Pulse Resp B/P B/P Pulse O2 O2 Flow FiO2 Mean Ox Delivery Rate 06/13 0628 97.3 75 18 130/52 94 Nasal Cannula 06/12 1800 Nasal 2.0L Cannula 06/12 1759 97.5 88 18 120/48 97 Nasal 2.0L Cannula 06/12 1559 97.2 88 18 122/58 96 Room Air Intake & Output 06/13 1600 06/13 0400 06/12 1600 06/12 0400 06/11 1600 06/11 0400 Intake Total 360 360 100 0 Output Total Balance 360 360 100 0 Intake, Oral 360 360 100 0 Patient 150 lb 150 lb Weight Weight Reported by Patient Measurement Method Physical Exam: Gen - frail appearing, weak HEENT - supple CV - RRR, no m/r/g Chest - clear anteriorly, no w/r/r Abd - soft, NTND Upper ext - warm, no edema, CATY AVG +bruit Lower ext - LLE wrapped, warm, trace-1+ edema Skin - LLE wrapped - limited evaluation but no visible rash or jaundice Neuro - weak, will respond to voice - limited exam Current Medications: Current Medications Sig/Luis Start time Last Medication Dose Route Stop Time Status Admin Acetaminophen 325 MG ONCE ONE 06/13 529 DC 06/13 PO 06/13 05 0525 Acetaminophen 325 MG ONCE ONE 06/12 1929 DC 06/12 PO 06/12 Atorvastatin Calcium 10 MG 1700 06/12 1700 AC PO Cefazolin Sodium 1,000 MG BID 06/12 1000 AC 06/12 IV 2155 Cholecalciferol 2,000 IU DAILY 06/12 1000 AC PO Digoxin 0.25 MG TuThSa@1700 06/12 0730 AC PO Epoetin Sachin 10,000 UNIT TuThSa PRN 06/12 1045 AC IV Lactobacillus 1 CAP DAILY 06/12 1000 AC Acidophilus PO Multivitamins 1 TAB DAILY 06/12 1000 AC PO Paricalcitol 10 MCG TuThSa PRN 06/12 1045 AC IV Sevelamer Carbonate 1,600 MG WM 06/12 0800 AC PO Vancomycin HCl 1,000 MG ONCE ONE 06/12 2215 DC 06/13 Dextrose/Water 250 ML IV 06/12 2314 0023 Results Pertinent Lab Results: Laboratory Tests 06/12 06/12 06/11 1159 0607 2100 Chemistry Sodium (137 - 145 mmol/L) 136 L Potassium (3.5 - 5.1 mmol/L) 5.4 H 6.0 *H Chloride (98 - 107 mmol/L) 102 Carbon Dioxide (22 - 30 mmol/L) 26 Anion Gap (5 - 16) 8 BUN (7 - 17 mg/dL) 39 H Creatinine (0.5 - 1.0 mg/dL) 4.8 H Estimated GFR (>60 ml/min) 9 L BUN/Creatinine Ratio (7 - 25 %) 8.1 Coagulation PT (9.4 - 12.5 SEC) 85.2 *H 69.2 *H INR (0.90 - 1.19) 7.66 *H 6.23 *H D-Dimer High Sensitivty (0 - 243 ng/ml) < 200 Hematology CBC w Diff MAN DIFF ORDERED WBC (4.8 - 10.8 /CUMM) 20.1 H RBC (4.20 - 5.40 /CUMM) 3.48 L Hgb (12.0 - 16.0 G/DL) 11.0 L Hct (37 - 47 %) 35.9 L MCV (81.0 - 99.0 FL) 103.1 H MCH (27.0 - 31.0 PG) 31.7 H MCHC (33.0 - 37.0 G/DL) 30.7 L RDW (11.5 - 14.5 %) 18.0 H Plt Count (130 - 400 /CUMM) 227 MPV (7.4 - 10.4 FL) 7.1 L Gran % (42.2 - 75.2 %) 92.4 H Lymphocytes % (20.5 - 51.1 %) 4.6 L Monocytes % (1.7 - 9.3 %) 2.4 Eosinophils % (0 - 5 %) 0.3 Basophils % (0.0 - 2.0 %) 0.3 Absolute Granulocytes (1.4 - 6.5 /CUMM) 18.6 H Segmented Neutrophils (42.2 - 75.2 %) 90 H Absolute Lymphocytes (1.2 - 3.4 /CUMM) 0.9 L Lymphocytes (20.5 - 51.1 %) 5 L Monocytes (1.7 - 9.3 %) 4 Absolute Monocytes (0.10 - 0.60 /CUMM) 0.5 Absolute Eosinophils (0.0 - 0.7 /CUMM) 0.1 Basophils (0.0 - 2.0 %) 1 Absolute Basophils (0.0 - 0.2 /CUMM) 0.1 Platelet Estimate (ADEQUATE) ADEQUATE Polychromasia 1+ Hypochromic-Microcytic 1+ Poikilocytosis 1+ Anisocytosis 1+ Macrocytic Cells 1+ Ovalocytes 1+ Other Body Source Fld Total RBCs Counted (%) 100 06/11 1950 Chemistry Sodium (137 - 145 mmol/L) 134 L Potassium (3.5 - 5.1 mmol/L) 5.7 H Chloride (98 - 107 mmol/L) 101 Carbon Dioxide (22 - 30 mmol/L) 24 Anion Gap (5 - 16) 9 BUN (7 - 17 mg/dL) 35 H Creatinine (0.5 - 1.0 mg/dL) 4.0 H Estimated GFR (>60 ml/min) 11 L BUN/Creatinine Ratio (7 - 25 %) 8.8 Glucose (65 - 99 mg/dL) 89 Lactic Acid (0.7 - 2.1 mmol/L) 0.7 Calcium (8.4 - 10.2 mg/dL) 9.1 Total Bilirubin (0.2 - 1.3 mg/dL) 1.1 AST (14 - 36 U/L) 14 ALT (9 - 52 U/L) 25 Alkaline Phosphatase (<127 U/L) 82 Troponin I (< 0.11 ng/ml) < 0.01 Total Protein (6.3 - 8.2 g/dL) 5.3 L Albumin (3.5 - 5.0 g/dL) 2.6 L Globulin (1.9 - 4.2 gm/dL) 2.7 Albumin/Globulin Ratio (1.1 - 2.2 %) 1.0 L Hematology CBC w Diff NO MAN DIFF REQ WBC (4.8 - 10.8 /CUMM) 20.9 H RBC (4.20 - 5.40 /CUMM) 3.62 L Hgb (12.0 - 16.0 G/DL) 11.5 L Hct (37 - 47 %) 37.3 MCV (81.0 - 99.0 FL) 103.3 H MCH (27.0 - 31.0 PG) 31.8 H MCHC (33.0 - 37.0 G/DL) 30.8 L RDW (11.5 - 14.5 %) 19.0 H Plt Count (130 - 400 /CUMM) 226 MPV (7.4 - 10.4 FL) 7.5 Gran % (42.2 - 75.2 %) 93.8 H Lymphocytes % (20.5 - 51.1 %) 3.8 L Monocytes % (1.7 - 9.3 %) 2.1 Eosinophils % (0 - 5 %) 0.1 Basophils % (0.0 - 2.0 %) 0.2 Absolute Granulocytes (1.4 - 6.5 /CUMM) 19.6 H Absolute Lymphocytes (1.2 - 3.4 /CUMM) 0.8 L Absolute Monocytes (0.10 - 0.60 /CUMM) 0.4 Absolute Eosinophils (0.0 - 0.7 /CUMM) 0 Absolute Basophils (0.0 - 0.2 /CUMM) 0 Toxicology Digoxin (0.8 - 2.0 ng/mL) 1.2 Imaging/Other Studies: EXAM TYPE: US - US-UNILATERAL VENOUS DOPPLER EXAMINATION: US TRIPLEX LOWER EXTREMITY, LEFT CLINICAL INFORMATION: Swelling, redness. COMPARISON: Left lower extremity ultrasound 10/31/2016 TECHNIQUE: Color-flow triplex imaging with spectral analysis and compression Doppler were performed on the lower extremity. FINDINGS: Respiratory variation, normal compression and augmented flow are noted throughout the lower extremity. The visualized common femoral vein, superficial femoral vein, profunda femoral vein, popliteal vein and midcalf peroneal and posterior tibial venous segments show no evidence of deep venous thrombosis. There is no Manzano's cyst. Pitting subcutaneous edema level of the left knee. IMPRESSION: Normal triplex scan without evidence of deep venous thrombosis involving the lower extremity.
--- NOTE | 2017-06-13 16:25 | Discharge Summary ---
Visit Information Visit Dates Admission Date: 06/11/17 Discharge Date: 06/13/17 Hospital Course Course Attending Physician: Ritika Silver MD Primary Care Physician: Ino Arevalo MD Hospital Course: 87 YO F with PMH of ESRD on dialysis, A. fib on Coumadin, syncope, HTN, CVA in 2012, pulmonary hypertension on 2 L on oxygen, peripheral neuropathy, osteoporosis, osteoarthritis, RA, hysterectomy, AV fistula in 2005 and graft at AV fistula 2013 and cataract removal bilaterally brought to ED by family for evaluation of altered mental status and progressive worsening bilateral leg swelling with left leg redness for one week. According to the patient she was in her usual state of health one-week back when she noticed bilateral lower extremity swelling. According to her daughter on last Saturday patient couldn't complete her dialysis because she developed hypotension and she was given normal saline. According to the daughter she is deteriorating and her leg swelling is worsening. She also reported that patient developed left leg redness for last 2 -3 days. According to patient her redness is progressively worsening and he also noticed blisters on the left leg. Daughter also reported that her mother is hallucinating for last 2-3 days as she mentioned that she was saying that somebody is going to break her house. Patient denied any chest pain, short of breath at rest, fever, chills, abdominal pain, cough, trauma to the leg, loss of consciousness, nausea, vomiting and dysuria. On the day of admission, she refused dialysis as she was not feeling good. On May 01 patient went to [facility] for regular checkup of AV fistula. The vascular surgeon perforated the basilic vein and later did the stenting. She was also given 1 blood transfusion at that point. According to the daughter since last October her mother's INR is not under control. On May 01 her daughter also noticed a bruise on her back and buttock. Last time she was admitted at [facility] in October 2016 when she presented with left knee hemarthrosis and supratherapeutic INR. Patient is following Dr. Walker her social work administrator. Patient is also seeing Dr. Hernandez for pulmonary hypertension. Her metoprolol is on hold since hypotension during dialysis and gabapentin is also on hold due to weakness.According to the daughter her mother is following Shahzad Aquino MD for ESRD. Patient lives with her daughter and uses walker at home. Hospital course Patient was admitted here for left leg cellulitis and was treated with IV antibiotics. Patient upon questioning further patient any refused further hemodialysis. Dr. Del Valle was involved in the care. After extensive discussion with the patient and her daughter with Dr. Del Valle at the bedside it was decided that, to have her last hemodialysis on the day of admission and further goals WILL be discussed with the patient and her family. Patient clearly with her mentation said that she doesn't want any further treatment for her cellulitis and dialysis for her end-stage renal disease. Hence hence her CODE STATUS was changed from full code to DNR/DNI. Hospice team evaluated the patient and decided hospice care for her the following day. Patient will be made comfortable. Allergies: Coded Allergies: losartan (From COZAAR) (Severe, HYPOTENSION 11/17/16) celecoxib (From CELEBREX) (Mild, RASH 11/17/16) Sulfa (Sulfonamide Antibiotics) (Intermediate, GI, DIARRHEA 11/17/16) doxycycline (Intermediate, GI, DIARRHEA 11/17/16) Disposition Summary Disposition Principal Diagnosis: End-stage renal disease, left leg cellulitis Additional Diagnosis: None Discharge Disposition: hospice - medical facilit Discharge Instructions General Discharge Information Code Status: Hospice Patient's Diet: Regular diet Patient's Activity: As tolerated Follow-Up Instructions/Appts: none Medications at Discharge Discharge Medications: Stop taking the following medications: Gabapentin (Gabapentin) 100 MG CAPSULE ORAL TWICE DAILY Qty = 75 Gabapentin (Gabapentin) 300 MG CAPSULE ORAL SATURDAY, SATURDAY, SATURDAY Metoprolol Tartrate (Metoprolol Tartrate) 25 MG TABLET ORAL TWICE DAILY Copies To: Ino Arevalo MD, MD Review Statement Documenting Attending: Norman Cole MD Other Findings: The patient was seen and transferred to inpatient Hospice care here at [facility].
== END 2017-06-13 12:49 | disposition hospice, home (50) | DRG 70 ==
LOC: ERH 19:18 → 2NA 21:56 → ERHI 21:56 → ENRESERV 06-12 15:55 → ENTRNSPT 06-12 17:27 → EDTRNSPTSTS 06-12 17:37 → EDTRNSPT 06-12 17:37 → 2NA 06-12 17:59 → CMPTRNSPT 06-12 18:00 → 2NA 06-13 12:49
PROVIDERS: Emergency Medicine; Student in an Organized Health Care Education/Training Program
PROC: 5A1D70Z Performance of Urinary Filtration, Intermittent, Less than 6 Hours Per Day (ICD-10-PCS; principal; 2017-06-13)
DX: G93.41 Metabolic encephalopathy (principal); N18.6 End stage renal disease; I12.0 Hypertensive chronic kidney disease with stage 5 chronic kidney disease or end stage renal disease; I48.2 Chronic atrial fibrillation; I27.20 Pulmonary hypertension, unspecified; G62.9 Polyneuropathy, unspecified; I48.91 Unspecified atrial fibrillation; L03.116 Cellulitis of left lower limb; D63.1 Anemia in chronic kidney disease; R44.3 Hallucinations, unspecified; Z99.2 Dependence on renal dialysis; Z79.01 Long term (current) use of anticoagulants; Z86.73 Personal history of transient ischemic attack (TIA), and cerebral infarction without residual deficits
CPT/HCPCS: 2NAP; ERO; 71045; 82436; 87040; 87147; 93005; 93010; 96374; J0690; J0885; J1644; J2501; J3370; J7060

== ENCOUNTER 2017-06-13 12:49 | Inpatient (IN) | payer OTHER ==
--- NOTE | 2017-06-13 13:01 | Admission Certification ---
Admission Certification Certification Statement - As attending physician, I certify that at the time of - admission, based on clinical presentation, severity of - symptoms, need for further diagnostic testing and - therapeutic interventions, and risk of adverse outcomes - without in-hospital treatment, in my clinical assessment, - this patient requires an acute hospital stay for a minimum - of two nights or longer. I have also considered psychsocial - factors such as support system, advanced age, financial - issues, cognitive issues, and failed out-patient treatments, - past re-admission history, safety of patient, and lack of - compliance as applicable. Specific rationale supporting this admission is: Patient with ESRD now off dialysis, atrial fibrillation, failing with multiple co-morbidities, dementia, for inpatient Hospice Care (converted from medical admit).
--- NOTE | 2017-06-13 20:20 | History & Physical ---
General Information and HPI Chief Complaint: Progressive dementia, mental status worsening, renal failure... Source of Information: family Exam Limitations: clinical condition, confusion Associated Symptoms: Confusion, edema, somnolence.... History of Present Illness: The patient is an 87 yo female with h/o ESRD on dialysis, atrial fibrillation, h /o CVA (2012), pulmonary HTN, OA, osteoporosis, peripheral neuropathy and dementia who was originally admitted to the general medical service here at [facility] on 06/11/17. Her general condition and mental status had been gradually worsening. She also had some left leg redness felt to be cellulitis. She was initially treated with IV antibiotics (Cefazolin) and did undergo dialysis. After several conversations with her family, they elected that considering her declining condition and advanced age that they wished not to continue dialysis any longer and wished to place her on Comfort Care/Hospice. The Hospice nursing staff met with the family today and agreed to transfer to inpatient Hospice service. At the time of my exam the patient was awake, however confused and appeared comfortable. Allergies/Medications Allergies: Coded Allergies: losartan (From COZAAR) (Severe, HYPOTENSION 11/17/16) celecoxib (From CELEBREX) (Mild, RASH 11/17/16) Sulfa (Sulfonamide Antibiotics) (Intermediate, GI, DIARRHEA 11/17/16) doxycycline (Intermediate, GI, DIARRHEA 11/17/16) Past History Medical History Neurological: CVA, peripheral neuropathy, syncope EENT: NONE Cardiovascular: AFIB, hypertension Respiratory: pulmonary hypertension, PLEURAL EFFUSION RT Gastrointestinal: NONE Hepatic: NONE Renal: chronic kidney disease Musculoskeletal: osteoarthritis, osteoporosis, RA Psychiatric: NONE Endocrine: NONE Blood Disorders: NONE Cancer(s): NONE 21 DEALER/Reproductive: NONE History of MRSA: No History of VRE: No History of CDIFF: No Isolation History: Standard Influenza Vaccine: 12/10/16 Surgical History Surgical History: cataract removal (B/L), hysterectomy, AV FISTULA 2006 GRAFT AT AV FISTULA 2013 Past Family/Social History Family History: not relevant Functional Ability: unable to ambulate at present Review of Systems Review of Systems Constitutional: Reports: malaise, weakness. Denies: no symptoms. EENTM: Denies: no symptoms. Cardiovascular: Reports: edema, peripheral edema. Denies: chest pain, palpitations. Respiratory: Reports: short of breath (OK on oxygen). GI: Denies: no symptoms. Genitourinary: Denies: no symptoms. Musculoskeletal: Reports: joint pain. Skin: Denies: no symptoms (cellulitis LLE). Neurological/Psychological: Reports: confusion, dementia. Hematologic/Endocrine: Denies: no symptoms. Immunologic/Allergic: Denies: no symptoms. Post Menopausal: Yes Exam & Diagnostic Data Last 24 Hrs of Vital Signs/I&O Vital Signs Date Time Temp Pulse Resp B/P B/P Pulse O2 O2 Flow FiO2 Mean Ox Delivery Rate 06/13 1600 Nasal 1.5L Cannula Intake & Output 06/13 1600 06/13 0800 06/13 0000 Intake Total 0 Output Total Balance 0 Intake, Oral 0 Physical Exam: see chart Physical Exam General Appearance Cooperative, No Acute Distress HEENT Atraumatic, PERRLA, EOMI Neck Supple, No JVD Cardiovascular Normal S1, Normal S2 (irregular) Lungs Clear to Auscultation (diminished breath sounds bases) Abdomen Normal Bowel Sounds, Soft, No Tenderness, No Masses Neurological Normal Gait (WOODALL- not ambulatory) Extremities No Clubbing (+ edema LE, diminished pulses) Assessment/Plan Assessment: Impression/Plan: #ESRD - has been on dialysis, however with generalized decline in her physical and mental status family wishes to stop dialysis and just give comfort measures. She was a DNR/DNI previous to this. This was discussed with Nephrology (Dr. Del Valle) as well. Plan: Will discontinue dialysis as per family wishes. Transfer to Hospice Care/Service with comfort measures Morphine, Scopolamine, Ativan, Glycopyrrolate as per Hospice protocol. #Dementia- patient is arousable and answers simple questions at present. Not oriented to place or time. Dementia has been progressive as per family. Plan: Will provide comfort measures as above. #Atrial Fibrillation- HR stable at present. Plan: Will discontinue Coumadin, etc. #Pulmonary HTN- on nasal oxygen. Plan: Will continue oxygen for comfort. Plan: As above.
[2017-06-14 06:00] VITALS: BP 120/38
--- NOTE | 2017-06-14 13:29 | PN- Hospice ---
Subjective Subjective: Family at bedside; pt appears comfortable, not responsive. Received morphine and ativan x 1 for restlesness and dyspnea. Not taking anything orally. Review of Systems Constitutional: Reports: see HPI. Objective Last 24 Hrs of Vital Signs/I&O Vital Signs Date Time Temp Pulse Resp B/P B/P Pulse O2 O2 Flow FiO2 Mean Ox Delivery Rate 06/14 0800 Nasal 2.0L Cannula 06/14 0645 20 06/14 0600 98.1 102 28 120/38 95 Nasal 2.0L Cannula 06/14 0000 Nasal 2.0L Cannula 06/13 1600 Nasal 1.5L Cannula Intake & Output 06/14 1600 06/14 0800 06/14 0000 Intake Total 50 Output Total Balance 50 Intake, Oral 50 Number 3 Bowel Movements Physical Exam General Appearance: no apparent distress, sedated Head: atraumatic Respiratory: no respiratory distress, quiet respiration, no tracheal secretions Cardiovascular: regular rate/rhythm Extremities: edema to all extremities, no mottling Current Medications: Current Medications Sig/Luis Start time Last Medication Dose Route Stop Time Status Admin Acetaminophen 650 MG Q4P PRN 06/13 1315 AC 06/13 PO 1404 Acetaminophen 650 MG Q4P PRN 06/13 1315 AC OR Artificial Tears 2 GTT Q2P PRN 06/13 1315 AC OU Bisacodyl 10 MG DAILY NEEDED PRN 06/13 1315 AC OR Glycerin 2 SPRAY Q4P PRN 06/13 1315 AC PO Glycerin/Mineral Oil 1 GUANACO Q8P PRN 06/13 1315 AC TOP Glycopyrrolate 400 MCG Q4P PRN 06/13 1315 AC SC Lorazepam 0.5 MG Q4P PRN 06/13 1315 AC 06/14 IV 0817 Morphine Sulfate 2 MG Q2P PRN 06/13 1315 AC 06/14 IV 0857 Scopolamine HBr 1 PAT Q72 06/16 1000 AC TOP Senna/Docusate Sodium 1 TAB BID 06/13 1311 AC PO Assessment/Plan Hospice Assessment/Recommendations: 87-year-old female with history of dementia, ESRD on HD, treated for LLE cellulitis and had worsening mental status, poor oral intake and hypotension requiring the discontinuation of dialysis. She was placed on hospice care in keeping with her previously known wishes. Comfortable with intermttent restlesness. Schedule ativan 0.5mg IV every 8 hours and continue as needed dosing for ativan and morphine. Discussed with daughter and nursing.
[2017-06-15 07:25] VITALS: BP 118/40
--- NOTE | 2017-06-15 12:08 | PN- Att Addend ---
Attending Addendum Attending Brief Note Patient seen and examined. Daughter present at the bedside. Patient is lying in bed and not in any acute distress. No issues overnight per the nursing staff. Daughter reports that patient is quite comfortable and actually smiled at one point. Vital Signs Date Time Temp Pulse Resp B/P B/P Pulse O2 O2 Flow FiO2 Mean Ox Delivery Rate 06/15 0725 97.1 91 20 118/40 96 Nasal 2.0L Cannula 06/15 0000 Nasal 2.0L Cannula 06/14 1501 98.9 General appearance: Patient is resting comfortably. She is nonresponsive to mild tactile or verbal stimuli. Heart: S1-S2 regular. Lungs: Clear bilaterally. Abdomen: Soft and nontender. Problems: 1. End-stage renal disease; dialysis has been stopped per family's wishes. 2. Advanced dementia. Plan: -Continue current regimen to provide comfort.
--- NOTE | 2017-06-17 12:19 | Discharge Summary ---
Visit Information Visit Dates Admission Date: 06/13/17 Discharge Date: 06/16/17 Hospital Course Course Attending Physician: Norman Cole MD Primary Care Physician: Ino Arevalo MD Hospital Course: 87-year-old female with history of dementia, ESRD on HD, treated for LLE cellulitis and had worsening mental status, poor oral intake and hypotension requiring the discontinuation of dialysis. She was placed on hospice care in keeping with her previously known wishes. She was kept comfortable with morphine and ativan until she passed peacefully with family at bedside. Allergies: Coded Allergies: losartan (From COZAAR) (Severe, HYPOTENSION 11/17/16) celecoxib (From CELEBREX) (Mild, RASH 11/17/16) Sulfa (Sulfonamide Antibiotics) (Intermediate, GI, DIARRHEA 11/17/16) doxycycline (Intermediate, GI, DIARRHEA 11/17/16) Disposition Summary Disposition Principal Diagnosis: End stage renal failure Left lower extremity cellulitis Additional Diagnosis: Dementia Discharge Disposition: Discharge Instructions General Discharge Information Code Status: Hospice Patient's Diet: N/A Patient's Activity: N/A Follow-Up Instructions/Appts: N/A Copies To: Ino Arevalo MD
== END 2017-06-16 01:00 | disposition expired | DRG 682 ==
LOC: 2NA 12:49
DX: I12.0 Hypertensive chronic kidney disease with stage 5 chronic kidney disease or end stage renal disease (principal); N18.6 End stage renal disease; I95.9 Hypotension, unspecified; L03.116 Cellulitis of left lower limb; I48.91 Unspecified atrial fibrillation; G62.9 Polyneuropathy, unspecified; Z51.5 Encounter for palliative care; Z99.2 Dependence on renal dialysis; Z79.01 Long term (current) use of anticoagulants; F03.90 Unspecified dementia, unspecified severity, without behavioral disturbance, psychotic disturbance, mood disturbance, and anxiety; Z86.73 Personal history of transient ischemic attack (TIA), and cerebral infarction without residual deficits
CPT/HCPCS: 2NAP